=== PATIENT | female | born 1970 | race Caucasian/White ===

== ENCOUNTER 2024-07-25 08:41 | Emergency (ER) | payer OTHER ==
[~2024-07-25] VITALS: Ht 154.9 cm; Wt 99.8 kg
[2024-07-25] MEDS ORDERED: SODIUM CHLORIDE 0.9% 1,000 ML IV ONE (09:25)
[2024-07-25] MEDS ORDERED: Metoclopramide Hydrochloride 10 MG/2 ML VIAL IV ONE (09:30)
[2024-07-25] MEDS ORDERED: diphenhydrAMINE hydrochloride 50 MG/ML VIAL IV ONE (09:30)
[2024-07-25] MEDS ORDERED: ACETAMINOPHEN 325 MG TAB PO ONE (09:30)
[2024-07-25 09:34] LABS: BASO % 0.3 % (0.0-1.0); EOS % 0.6 % (1.0-4.0); MEAN CORPUSCULAR HGB 28.4 pg (27.0-31.0); MEAN CORPUSCULAR HGB CONC 33.4 g/dl (33.0-37.0); MEAN PLATELET VOLUME 9.3 fl (9.6-12.3); MONO # 0.4 10*3/uL (0.1-1.0); NEUT # 4.3 10*3/uL (2.3-7.9); NEUT % 64.2 % (47.0-73.0); PLATELET COUNT AUTOMATED 295 10*3/uL (130-400); RED BLOOD COUNT 4.47 10*6/uL (4.10-5.10); RED CELL DISTRI WIDTH 12.3 % (0-14.5); WHITE BLOOD COUNT 6.7 10*3/uL (4.8-10.8)
[2024-07-25 09:58] LABS: BILIRUBIN Negative (Negative); BLOOD Negative (Negative); CLARITY Clear (Clear); COLOR Yellow (Yellow); GLUCOSE Negative (Negative); KETONE Negative (Negative); LEUKO ESTERASE Trace (Negative); NITRITE Negative (Negative); PH 7.5 (4.5-8.0); UROBILINOGEN 0.2 E.U./dl (0.0-1.0)
[2024-07-25 09:58] LABS: ALKALINE PHOSPHATASE 59 U/L (46-116); BUN 7 mg/dl (9-23); CHLORIDE 105 mmol/L (98-107); POTASSIUM 3.8 mmol/L (3.4-5.1); SGPT/ALT 9 U/L (5-49); TOTAL PROTEIN 7.3 gm/dL (6.0-8.0)
[2024-07-25 10:09] LABS: EPITHELIAL CELLS 16-20
[2024-07-25 10:10] LABS: BACTERIA 1+; MUCOUS 1+
[2024-07-25] MEDS ORDERED: Dexamethasone Sodium Phospha 20 MG/5 ML VIAL IV ONE (10:30)
[2024-07-25] MEDS ORDERED: Tamsulosin Hydrochloride 0.4 MG CAP PO ONE (10:40)
== END 2024-07-25 11:49 | disposition home or self-care (01) ==
LOC: ED 08:41
PROVIDERS: Nurse Practitioner
DX: R33.9 Retention of urine, unspecified (principal); R51.9 Headache, unspecified; R30.0 Dysuria; R42 Dizziness and giddiness; Z88.6 Allergy status to analgesic agent; Z98.890 Other specified postprocedural states